=== PATIENT | female | born 1930 | race Caucasian/White ===

== ENCOUNTER 2017-04-01 17:15 | Inpatient (IN) | payer MEDICARE, OTHER ==
[~2017-04-01] VITALS: Ht 160 cm; Wt 53.5 kg
--- NOTE | 2017-04-01 17:30 | NUR ---
PT CAME IN FOR NEAR SYNCOPAL EPISODE AT [facility] TODAY. DENIES KO. DENIES PAIN. NOTED GEN WEAKNESS. VSS. AAOX3. SEEN BY MD FOR EVAL. SAFETY AND COMFORT MEASURES PROVIDED. WILL MONITOR.
[2017-04-01 17:41] LABS: BASOPHILS # (AUTO) 0.1 /CMM (0.0-0.2); BASOPHILS % (AUTO) 1.3 % (0.0-2.0); EOSINOPHILS # (AUTO) 0.1 /CMM (0.0-0.7); EOSINOPHILS % (AUTO) 1.6 % (0.0-6.0); HEMATOCRIT 38 % (33-45); HEMOGLOBIN 12.9 g/dL (11.5-14.8); LYMPHOCYTES # (AUTO) 2.3 /CMM (0.8-4.8); LYMPHOCYTES % (AUTO) 27.4 % (20.0-44.0); MEAN CORPUSCULAR HEMOGLOBIN 31 PG (26.0-33.0); MEAN CORPUSCULAR HGB CONC 34 g/dl (31.0-36.0); MEAN CORPUSCULAR VOLUME 90 fL (82-100); MONOCYTES # (AUTO) 0.6 /CMM (0.1-1.30); MONOCYTES % (AUTO) 6.7 % (2.0-12.0); NEUTROPHILS # (AUTO) 5.2 /CMM (1.8-8.9); PLATELET COUNT (AUTO) 307 /CMM (150-450); RDW COEFFICIENT OF VARIATION 13.7 (11.5-15.0); RED BLOOD CELL COUNT(AUTO) 4.18 MIL/uL (4.0-5.2); WHITE BLOOD COUNT (AUTO) 8.3 K/uL (4.3-11.0)
[2017-04-01 17:58] LABS: CALCIUM, SERUM 8.6 mg/dL (8.5-10.1); CARBON DIOXIDE 28 mmol/L (21-32); CHLORIDE 107 mmol/L (98-107); GLUCOSE 156 mg/dL (74-106); POTASSIUM 3.8 mmol/L (3.5-5.1); SODIUM SERUM 141 mmol/L (136-145); UREA NITROGEN, BLOOD 20 mg/dL (7-18)
[2017-04-01 18:02] LABS: INR 1.05 (0.87-1.13); PROTHROMBIN TIME 10.9 SECS (9.5-12.7)
[2017-04-01 18:04] LABS: ALANINE AMINOTRANSFERASE 13 U/L (12-78); ALBUMIN 3.6 g/dL (3.4-5.0); ALKALINE PHOSPHATASE 68 U/L (46-116); ASPARTATE AMINOTRANSFERASE 17 U/L (15-37); BILIRUBIN,DIRECT 0.1 mg/dL (0.0-0.2); BILIRUBIN,TOTAL 0.7 mg/dL (0.2-1.0)
--- NOTE | 2017-04-01 18:40 | NUR ---
DR. FAN AT FOR ADMISSION.
[2017-04-01] MEDS ORDERED: IV NS 0.9% 1,000 ML IV PRN ×2 (18:57→19:30)
[2017-04-01] MEDS ORDERED: ENOXAPARIN SODIUM 40 MG/0.4 ML DISP.SYRIN SQ SCH ×2 (19:00→20:00)
[2017-04-01] MEDS ORDERED: ACETAMINOPHEN 325 MG TABLET PO PRN ×2 (19:00→19:30)
[2017-04-01] MEDS ORDERED: ONDANSETRON HCL/PF 4 MG/2 ML VIAL IVP PRN ×2 (19:00→19:30)
[2017-04-01] MEDS ORDERED: HYDROCODONE/APAP 5/325MG 1 EACH TABLET PO PRN ×2 (19:00→19:30)
[2017-04-01] MEDS ORDERED: MAGNESIUM HYDROXIDE 30 ML UDC PO PRN ×2 (19:00→19:30)
[2017-04-01] MEDS ORDERED: MAG HYDROX/AL HYDROX/SIMETH 30 ML UDC PO PRN ×2 (19:00→19:30)
[2017-04-01] MEDS ORDERED: Z GUARD REMEDY 2 OZ OINT TP PRN ×2 (19:00→19:30)
[2017-04-01] MEDS ORDERED: ZOLPIDEM TARTRATE 5 MG TABLET PO PRN ×2 (19:00→19:30)
--- NOTE | 2017-04-01 19:06 | NUR ---
REPORT GIVEN TO BAILEY CASILLAS FOR TELE ROOM 328-1
--- NOTE | 2017-04-01 19:45 | NUR ---
COMMISSIONING SPECIALIST NOTE RECEIVED PATIENT FROM ER VIA GURNEY, PATIENT IS ALERT AND ORIENTEDX3, NO S/S OF RESPIRATORY DISTRESS OR PAIN REPORTED, AMBULATORY WITH ASSIST. SKIN IS INTACT, IV ON RIGHT HAND 20G IS PATENT AND INTACT, WILL CONNECT TO FLUID. TELE MONITOR SR 74. SRX2, BED IN LOW POSITION, CALL LIGHT WITHIN REACH, WILL CONTINUE TO MONITOR.
[2017-04-01] MEDS ORDERED: IV SET PRIMARY PUMP SET 1 EA INFUS.SET MC ONE (20:00)
[2017-04-02 00:56] VITALS: BP 113/72
[2017-04-02 04:19] VITALS: BP 134/76
--- NOTE | 2017-04-02 06:56 | NUR ---
CARTOGRAPHY SUPERVISOR NOTE PATIENT IS RESTING IN BED COMFORTABLY, NO S/S OF RESPIRATORY DISTRESS AND NO FACIAL GRIMACE NOTED. IV ON RIGHT HAND IS PATENT AND INTACT, FLUID IS RUNNING. TELE MONITOR SR WITH PAC 60. WILL ENDORSE TO DAY SHIFT FOR LONNIE.
[2017-04-02 07:08] VITALS: BP 143/77
[2017-04-02] MEDS ORDERED: PANTOPRAZOLE 40 MG TABLET.DR PO SCH ×2 (07:30)
--- NOTE | 2017-04-02 07:36 | NUR ---
RN NOTES PT IN BED. SLEEPING, BUT EASY TO AWAKE. IN NO APPARENT DISTRESS. RESPIRATIONS EVEN AND UNLABORED. DENIE VIVIANA AND DISCOMFORT. CALL LIGHT WITHIN REACH. WILL CONTINUE TO MONITOR
[2017-04-02 08:00] VITALS: BP 148/81
[2017-04-02] MEDS ORDERED: POTASSIUM CHLORIDE 20 MEQ TAB.PRT.SR PO SCH (08:00)
--- NOTE | 2017-04-02 08:00 | NUR ---
RN NOTES PT SEEN AND EXAMINED BY DR FLOR- WITH ORDERS NOTED NAD CARRIED OUT
[2017-04-02 08:33] LABS: BASOPHILS # (AUTO) 0.1 /CMM (0.0-0.2); BASOPHILS % (AUTO) 0.8 % (0.0-2.0); EOSINOPHILS # (AUTO) 0.1 /CMM (0.0-0.7); EOSINOPHILS % (AUTO) 1.4 % (0.0-6.0); HEMATOCRIT 38 % (33-45); HEMOGLOBIN 12.8 g/dL (11.5-14.8); LYMPHOCYTES # (AUTO) 1.8 /CMM (0.8-4.8); LYMPHOCYTES % (AUTO) 26.5 % (20.0-44.0); MEAN CORPUSCULAR HEMOGLOBIN 30 PG (26.0-33.0); MEAN CORPUSCULAR HGB CONC 34 g/dl (31.0-36.0); MEAN CORPUSCULAR VOLUME 90 fL (82-100); MONOCYTES # (AUTO) 0.7 /CMM (0.1-1.30); MONOCYTES % (AUTO) 10.1 % (2.0-12.0); NEUTROPHILS # (AUTO) 4.1 /CMM (1.8-8.9); NEUTROPHILS % (AUTO) 61.2 % (43.0-81.0); PLATELET COUNT (AUTO) 308 /CMM (150-450); RDW COEFFICIENT OF VARIATION 14.3 (11.5-15.0); RED BLOOD CELL COUNT(AUTO) 4.21 MIL/uL (4.0-5.2); WHITE BLOOD COUNT (AUTO) 6.7 K/uL (4.3-11.0)
[2017-04-02 09:00] LABS: CHOLESTEROL 221 mg/dL (<200); HDL CHOLESTEROL 56 mg/dL (40-60); THYROID STIMULATING HORMONE 1.024 uIU/mL (0.358-3.74); TRIGLYCERIDES 112 mg/dL (30-150)
--- NOTE | 2017-04-02 09:00 | NUR ---
RN NOTES PT SEEN AND EXAMINED BY DR RAMOS- WITH NEW ORDERS NOTED AND CARRIED OUT
[2017-04-02 09:02] LABS: B-TYPE NATRIURETIC PEPTIDE 582 PG/ML (0-125); CALCIUM, SERUM 8.6 mg/dL (8.5-10.1); CARBON DIOXIDE 30 mmol/L (21-32); CHLORIDE 109 mmol/L (98-107); CREATININE 0.8 mg/dL (0.6-1.3); GLUCOSE 88 mg/dL (74-106); MAGNESIUM 2.1 mg/dL (1.8-2.4); PHOSPHORUS 3.8 mg/dL (2.5-4.9); POTASSIUM 3.8 mmol/L (3.5-5.1); SODIUM SERUM 146 mmol/L (136-145); UREA NITROGEN, BLOOD 22 mg/dL (7-18)
[2017-04-02 09:15] LABS: LDL 126 mg/dL (0-99)
--- NOTE | 2017-04-02 10:30 | NUR ---
RN NOTES PT SEEN BY PHYSICAL THERAPY FOR CONSULT. TOLERATED WALKING WITH PT. WILL CONTINUE TO CLOSELY MONITOR
[2017-04-02 11:42] VITALS: BP_SYST 119; BP_SYST 120; BP_SYST 136; BP_DIAS 69; BP_DIAS 74; BP_DIAS 75
[2017-04-02 13:42] LABS: APPEARANCE,URINE CLOUDY (CLEAR); BILIRUBIN,URINE NEGATIVE (NEGATIVE); BLOOD, URINE 1+ Ery/uL (NEGATIVE); COLOR,URINE YELLOW (YELLOW); KETONES,URINE NEGATIVE (NEGATIVE); LEUKOCYTE ESTERASE ,URINE 3+ (NEGATIVE); NITRITE, URINE NEGATIVE (NEGATIVE); PH,URINE 6.5 (5.0-8.0); PROTEIN,URINE TRACE mg/dl (NEGATIVE); UGLUCOSE NEGATIVE (NEGATIVE); UROBILINOGEN,URINE 0.2 EU/dL (0.2)
[2017-04-02 13:46] LABS: BACTERIA,URINE Many /HPF (None Seen); SQUAMOUS EPITHELIAL CELL,UR Moderate /HPF (None Seen); WBC,URINE TOO NUMEROUS TO COUN /HPF (0-3)
--- NOTE | 2017-04-02 15:00 | NUR ---
RN NOTES PT SEEN AND EXAMINED BY DR FAN- WITH NEW ORDERS FOR DISCHARGE TO HOME. PT'S URINALYSIS RELAYED TO DR FAN. SAID NO ATB NEEDED AT THIS TIME. PT'S DAUGHTER RAVINDRA MADE AWARE OF ORDER. SAID SHE WILL PICK PT UP BETWEEN 6-7. NOTED. DISCHARGE PAPERS DONE VIA [employer]. WILL WAIT FOR PICKUP
[2017-04-02 16:00] VITALS: BP 128/78
--- NOTE | 2017-04-02 18:40 | NUR ---
RN NOTES PT DISCHARGED IN NO DISTRESS. PICKED UP BY DAUGHTER RAVINDRA.
== END 2017-04-02 18:45 | disposition home or self-care (01) | DRG 641 ==
LOC: ER 17:20 → TELE 19:36 → MED 04-02 10:54
DX: E86.0 Dehydration (principal); R55 Syncope and collapse; E78.5 Hyperlipidemia, unspecified; R79.89 Other specified abnormal findings of blood chemistry; R91.8 Other nonspecific abnormal finding of lung field; R53.81 Other malaise
CPT/HCPCS: 36415; 70450-TC; 71010-TC; 80048-TC; 80061-TC; 80076-TC; 80305; 81000-TC; 82962-TC; 83735-TC; 83880; 84100-TC; 84443-TC; 84484-TC; 85025-TC; 85730-TC; 87081-TC; 87086-TC; 87186-TC; 93307-TC; 97001-TC; A4606; J1650; J7030; Z7610